=== PATIENT | male | born 1995 ===

== ENCOUNTER 2017-02-22 09:58 | Day surgery (SDC) | payer OTHER ==
[2017-02-22] MEDS ORDERED: Lactated Ringer's 1,000 ML IV ONE (10:24)
[2017-02-22] MEDS ORDERED: Propofol 10 mg/ml Inj (20 ML) ONE ×2 (10:42→11:16)
[2017-02-22] MEDS ORDERED: Midazolam 2 MG/2 ML VIAL ONE (10:42)
[2017-02-22 11:30] VITALS: TEMP 97.5
[2017-02-22 12:01] VITALS: BP 105/56; PULSE 63; RESP 19; O2SAT 98
== END 2017-02-22 12:02 | disposition home or self-care (01) ==
LOC: H.ENDO 09:58
PROVIDERS: ATTEND Internal Medicine Gastroenterology
DX: R10.13 Epigastric pain (principal); J45.909 Unspecified asthma, uncomplicated
CPT/HCPCS: 43235; 88305; J2250; J2704; J7120